=== PATIENT | female | born 1950 | race Caucasian/White ===

== ENCOUNTER 2018-05-02 15:57 | Emergency (ER) | payer OTHER, MEDICAID ==
[2018-05-02] MEDS ORDERED: IPRATROPIUM/ALBUTEROL 3 ML DEYVIAL IH ONE (16:24)
[2018-05-02] MEDS ORDERED: NS 1,000 ML IV ONE (16:24)
--- NOTE | 2018-05-02 16:27 | EDPHY ---
H & P Stated Complaint: cough/fever Time Seen by Provider: 05/02/18 16:18 HPI/ROS: CHIEF COMPLAINT: Cough HISTORY OF PRESENT ILLNESS: The patient is a 67-year-old healthy female who comes to the emergency department complaining of a cough for the last week as well as a low-grade fever. She denies shortness of breath. She denies any cardiac or pulmonary history. Her granddaughter is also been sick with a cough. No chest pain. No abdominal pain. REVIEW OF SYSTEMS: Constitutional: denies: chills, fever, recent illness, recent injury EENTM: denies: blurred vision, double vision, nose congestion Respiratory: See HPI Cardiac: denies: chest pain, irregular heart rate, lightheadedness, palpitations Gastrointestinal/Abdominal: denies: abdominal pain, diarrhea, nausea, vomiting, blood streaked stools Genitourinary: denies: dysuria, frequency, hematuria, pain Musculoskeletal: denies: joint pain, muscle pain Skin: denies: lesions, rash, jaundice, bruising Neurological: denies: headache, numbness, paresthesia, tingling, dizziness, weakness Hematologic/Lymphatic: denies: blood clots, easy bleeding, easy bruising Immunologic/allergic: denies: HIV/AIDS, transplant EXAM: GENERAL: Well-appearing, well-nourished and in no acute distress. HEAD: Atraumatic, normocephalic. EYES: Pupils equal round and reactive to light, extraocular movements intact, sclera anicteric, conjunctiva are normal. ENT: TMs normal, nares patent, oropharynx clear without exudates. Moist mucous membranes. NECK: Normal range of motion, supple without lymphadenopathy or JVD. LUNGS: Left lower lobe rhonchi, cough HEART: Regular rate and rhythm without murmurs, rubs or gallops. ABDOMEN: Soft, nontender, normoactive bowel sounds. No guarding, no rebound. No masses appreciated. BACK: No CVA tenderness, no spinal tenderness, step-offs or deformities EXTREMITIES: Normal range of motion, no pitting or edema. No clubbing or cyanosis. NEUROLOGICAL: Cranial nerves II through XII grossly intact. Normal speech, normal gait. 5/5 strength, normal movement in all extremities, normal sensation PSYCH: Normal mood, normal affect. SKIN: Warm, dry, normal turgor, no visible rashes or lesions. Source: Patient Exam Limitations: No limitations - Personal History Current Tetanus Diphtheria and Acellular Pertussis (TDAP): No - Medical/Surgical History Hx Asthma: No Hx Chronic Respiratory Disease: No Hx Diabetes: No Hx Cardiac Disease: No Hx Renal Disease: No Hx Cirrhosis: No Hx Alcoholism: No Hx HIV/AIDS: No Hx Splenectomy or Spleen Trauma: No Other PMH: cervical spine surgery - Family History Significant Family History: No pertinent family hx - Social History Smoking Status: Never smoked Alcohol Use: Sober Drug Use: None Constitutional: Initial Vital Signs Temperature (C) 37.9 C 05/02/18 16:05 Heart Rate 82 05/02/18 16:05 Respiratory Rate 16 05/02/18 16:05 Blood Pressure 139/85 H 05/02/18 16:05 O2 Sat (%) 95 05/02/18 16:05 O2 Delivery Mode Room Air Allergies/Adverse Reactions: No Known Allergies Allergy (Verified 05/02/18 16:04) Home Medications: Medication Instructions Recorded Acetaminophen/Codeine 300/30Mg 1 - 2 each PO Q6 PRN #14 tab 05/02/18 [Tylenol #3 (RX)] levOFLOXACIN [levAQUIN] 750 mg PO DAILY #10 tab 05/02/18 traMADol 05/02/18 traZODone 05/02/18 Medical Decision Making - Diagnostics EKG Interpretation: An EKG obtained and was read and documented in trace view. Please see trace view for full reading and report. Sinus rhythm, no acute ischemic changes Imaging Results: Imaging Impressions Chest X-Ray 05/02/18 16:25 Impression: Reticulation and haziness at the lung bases bilaterally and in the right suprahilar region may represent pneumonitis or developing pneumonia. Recommend correlation. Imaging: Discussed imaging studies w/ associate merchant Radiologist ED Course/Re-evaluation: 4:50 p.m. We discussed the patient's x-ray and lab work. It is reassuring. Feel that she is doing well enough to be discharged. I would like to give her some potassium 1st and recheck it. She is asking for Tylenol with codeine. 8:30 p.m. the patient's repeat potassium is improved. Was is after 10 mEq. I will give her the rest orally. We discussed follow-up and indications for returning. She is happy with this plan. Differential Diagnosis: Partial list of the Differential diagnosis considered include but were not limited to; pneumonia, electrolyte abnormality, bronchitis and although unlikely based on the history and physical exam, I also considered COPD, pneumothorax, acute coronary disease. I discussed these differential diagnoses and the plan with the patient as well as the usual and expected course. The patient understands that the diagnosis is provisional and that in medicine we are not always correct and that further workup is often warranted. Usual and customary warnings were given. All of the patient's questions were answered. The patient was instructed to return to the emergency department should the symptoms at all worsen or return, otherwise to followup with the physician as we discussed. - Data Points Laboratory Results: Laboratory Results 05/02/18 16:50 05/02/18 16:50 05/02/18 05/02/18 05/02/18 20:36 16:50 16:50 WBC RBC Hgb POC Hgb 12.2 gm/dL L gm/dL (12.6-16.3) Hct POC Hct 36 % L % (38-47) MCV MCH MCHC RDW Plt Count MPV Neut % (Auto) Lymph % (Auto) [place] % (Auto) Eos % (Auto) Baso % (Auto) Nucleat RBC Rel Count Absolute Neuts (auto) Absolute Lymphs (auto) Absolute Monos (auto) Absolute Eos (auto) Absolute Basos (auto) Absolute Nucleated RBC Immature Gran % Immature Gran # PT 15.2 SEC H SEC (12.0-15.0) INR 1.18 H (0.83-1.16) APTT 29.9 SEC SEC (23.0-38.0) VBG Lactic Acid 1.9 mmol/L mmol/L (0.7-2.1) POC Sodium 137 mEq/L mEq/L (135-145) Sodium POC Potassium 3.2 mEq/L L mEq/L (3.3-5.0) Potassium POC Chloride 98 mEq/L mEq/L (97-110) Chloride Carbon Dioxide Anion Gap POC BUN < 3 mg/dL L mg/dL (7-23) BUN Creatinine POC Creatinine 0.6 mg/dL mg/dL (0.6-1.0) Estimated GFR Glucose POC Glucose 119 mg/dL H mg/dL (70-100) Calcium Total Bilirubin 05/02/18 05/02/18 16:50 16:50 WBC 10.96 10^3/uL H 10^3/uL (3.80-9.50) RBC 4.15 10^6/uL L 10^6/uL (4.18-5.33) Hgb 13.7 g/dL g/dL (12.6-16.3) POC Hgb Hct 38.5 % % (38.0-47.0) POC Hct MCV 92.8 fL fL (81.5-99.8) MCH 33.0 pg pg (27.9-34.1) MCHC 35.6 g/dL g/dL (32.4-36.7) RDW 11.7 % % (11.5-15.2) Plt Count 259 10^3/uL 10^3/uL (150-400) MPV 9.8 fL fL (8.7-11.7) Neut % (Auto) 81.2 % H % (39.3-74.2) Lymph % (Auto) 11.5 % L % (15.0-45.0) [place] % (Auto) 6.6 % % (4.5-13.0) Eos % (Auto) 0.1 % L % (0.6-7.6) Baso % (Auto) 0.2 % L % (0.3-1.7) Nucleat RBC Rel Count 0.0 % % (0.0-0.2) Absolute Neuts (auto) 8.91 10^3/uL H 10^3/uL (1.70-6.50) Absolute Lymphs (auto) 1.26 10^3/uL 10^3/uL (1.00-3.00) Absolute Monos (auto) 0.72 10^3/uL 10^3/uL (0.30-0.80) Absolute Eos (auto) 0.01 10^3/uL L 10^3/uL (0.03-0.40) Absolute Basos (auto) 0.02 10^3/uL 10^3/uL (0.02-0.10) Absolute Nucleated RBC 0.00 10^3/uL 10^3/uL (0-0.01) Immature Gran % 0.4 % % (0.0-1.1) Immature Gran # 0.04 10^3/uL 10^3/uL (0.00-0.10) PT INR APTT VBG Lactic Acid POC Sodium Sodium 136 mEq/L mEq/L (135-145) POC Potassium Potassium 2.9 mEq/L L mEq/L (3.3-5.0) POC Chloride Chloride 93 mEq/L L mEq/L (97-110) Carbon Dioxide 28 mEq/l mEq/l (22-31) Anion Gap 15 mEq/L mEq/L (8-16) POC BUN BUN 7 mg/dL mg/dL (7-23) Creatinine 0.7 mg/dL mg/dL (0.6-1.0) POC Creatinine Estimated GFR > 60 Glucose 101 mg/dL H mg/dL (70-100) POC Glucose Calcium 9.3 mg/dL mg/dL (8.5-10.4) Total Bilirubin 1.5 mg/dL H mg/dL (0.1-1.4) Medications Given: Potassium Chloride 10 meq/ (Sodium Chloride) 100 mls @ 100 mls/hr IV Q1H MARIO Stop: 05/02/18 21:59 Last Admin: 05/02/18 20:38 Dose: Not Given Discontinued Medications Acetaminophen/Codeine Phosphate (Tylenol #3) 2 tab PO EDNOW ONE Stop: 05/02/18 17:41 Last Admin: 05/02/18 17:49 Dose: 2 tab Albuterol/Ipratropium (Duoneb) 3 ml IH EDNOW ONE Stop: 05/02/18 16:25 Last Admin: 05/02/18 16:46 Dose: 3 ml Sodium Chloride (Ns) 1,000 mls @ 0 mls/hr IV ONCE ONE; Wide Open PRN Reason: Protocol Stop: 05/02/18 16:25 Last Admin: 05/02/18 16:45 Dose: 1,000 mls Levofloxacin/Dextrose (Levaquin 750 Mg (Premix)) 150 mls @ 100 mls/hr IV EDNOW ONE PRN Reason: Protocol Stop: 05/02/18 17:53 Last Admin: 05/02/18 16:45 Dose: 150 mls Point of Care Test Results: Chemistry 05/02/18 20:36 POC Sodium 137 mEq/L mEq/L (135-145) POC Potassium 3.2 mEq/L L mEq/L (3.3-5.0) POC Chloride 98 mEq/L mEq/L (97-110) POC BUN < 3 mg/dL L mg/dL (7-23) POC Creatinine 0.6 mg/dL mg/dL (0.6-1.0) POC Glucose 119 mg/dL H mg/dL (70-100) ISTAT H&H 05/02/18 20:36 POC Hgb 12.2 gm/dL L gm/dL (12.6-16.3) POC Hct 36 % L % (38-47) Departure - Departure Disposition: Home, Routine, Self-Care Clinical Impression: Pneumonia Condition: Fair Instructions: Bacterial Pneumonia (ED), Hydrocodone/Acetaminophen (By mouth) Referrals: NONE *PRIMARY CARE P,. [Primary Care Provider] - As per Instructions Irina Spencer MD [Medical Doctor] - As per Instructions Prescriptions: Acetaminophen/Codeine 300/30Mg [Tylenol #3 (RX)] 1 - 2 each PO Q6 PRN #14 tab PRN Reason: *Cough levOFLOXACIN [levAQUIN] 750 mg PO DAILY #10 tab
[2018-05-02 17:04] LABS: PLATELET COUNT 259 10^3/uL (150-400)
[2018-05-02 17:21] LABS: INR 1.18 (0.83-1.16); PROTIME(PATIENT) 15.2 SEC (12.0-15.0)
[2018-05-02] MEDS ORDERED: ACETAMINOPHEN/CODEINE 300/30MG TAB PO ONE (17:40)
[2018-05-02] MEDS ORDERED: POTASSIUM Cl (KCl) 100 ML IV SCH (18:00)
[2018-05-02] MEDS: POTASSIUM Cl (KCl) 10 MEQ in NS 100 ML IV SCH ×3 (18:35→20:38)
--- NOTE | 2018-05-02 20:37 | CPEKG ---
Heart Rate: 83 RR Interval: 723 P-R Interval: 136 QRSD Interval: 92 QT Interval: 380 QTC Interval: 447 P [place]: 11 QRS [place]: -23 T Wave [place]: 52 EKG Severity - OTHERWISE NORMAL ECG - EKG Impression: SINUS RHYTHM EKG Impression: BORDERLINE LEFT AXIS DEVIATION Electronically Signed By: Larry Ramírez 02-May-2018 20:41:07
[2018-05-02] MEDS ORDERED: HYDROCOD/APAP 5/325 PREPACK#6 BTL TAKEHOME ONE (20:39)
[2018-05-02] MEDS ORDERED: POTASSIUM CL 10 MEQ TAB PO ONE (20:41)
[2018-05-02 20:59] VITALS: BP 109/51
== END 2018-05-02 20:57 | disposition home or self-care (01) ==
DX: J18.9 Pneumonia, unspecified organism (principal); E86.9 Volume depletion, unspecified
CPT/HCPCS: 71046; 93005; 96365; 99285; J1956; J3480; 82435-PO; 82565-PO; 82947-PO; 84132-PO; 84295-PO; 84520-PO; 85014-PO